=== PATIENT | female | born 1975 | race Two or more races ===

== ENCOUNTER 2018-10-27 22:39 | Emergency (ER) | payer OTHER ==
[2018-10-27 22:49] VITALS: BP 119/87; PULSE 116; TEMP 98.6; BMI 21.7
--- NOTE | 2018-10-27 22:55 | PDOC ---
History of Present Illness - General Chief Complaint: Pain Stated Complaint: RECTAL PAIN, CONSTIPATION Time Seen by Provider: 10/27/18 22:42 History Source: Patient Exam Limitations: No Limitations - History of Present Illness Initial Comments: 10/27/18 22:47 This is a 43-year-old female who comes in complaining of rectal pain. Patient said she is constipated and has had a difficult time having a bowel movement 3 days now. Patient was at urgent care center and was given Anusol and Colace rectal suppositories. Patient said she didn't take one Colace rectal suppository and had a small amount of soft stool but it was uncomfortable and so she came in for evaluation. Patient denies any nausea, vomiting, diarrhea. Patient denies any fevers or chills. Patient has history of irritable bowel syndrome and has history of chronic intermittent constipation. Allergies: as per nursing notes Past Medical History: none Social history: Lives with family. No smoking. No alcohol. No illicit drugs. Surgical history: None General: No fevers or chills, no weakness, no weight loss HEENT: No change in vision. No sore throat,. No ear pain CardioVascular: no chest discomfort. No shortness of breath Respiratory:No cough, or wheezing. Gastrointestinal: no nausea, vomiting, diarrhea or constipation, No rectal bleeding Genitourinary: No dysuria, hematuria, or frequency Musculoskeletal: No joint or muscle pain or swelling Neurologic: No headache, vertigo, dizziness or loss of consciousness Psychiatric: nor depression Skin: No rashes or easy bruising Endocrine: no increased thirst or abnormal weight change Allergic: no skin or latex allergy All other systems reviewed and normal Exam: General: Well-nourished well-developed individual, no acute distress HEENT: Throat: Normal, tonsils normal, no erythema or exudate Neck: Supple, no meningeal signs, no lymphadenopathy Eyes::Pupils equal reactive and round, extraocular motion intact Chest: Nontender to palpation Cardiac: S1-S2 normal, regular rate and rhythm, no murmurs rubs or gallops Respiratory: Lungs clear to auscultation bilateral Abdomen: Soft, nondistended, normal bowel sounds, there is no tenderness on palpation diffusely Rectal: There is a moderate amount of soft stool in the rectal vault stool is brown. There is no visible external hemorrhoids or palpable internal hemorrhoids. Extremities: Warm, dry, no cyanosis, clubbing, or edema Skin: No rashes Neuro: Alert and oriented x3, CN II - XII intact, nonfocal exam with normal strength, normal sensation, normal reflexes, normal gait, Psych: Normal mood and affect Assessment and plan: This is a 43-year-old female who comes in complaining of rectal pain. Patient is somewhat constipated but does have soft stool which she should be able to push out. Told patient to go to the pharmacy and get a mineral oil enema as well as a regular fleets enema and administer to herself as directed by the box Past History - Past Medical History Allergies/Adverse Reactions: Allergies Allergy/AdvReac Type Severity Reaction Status Date / Time Penicillins Allergy Verified 10/27/18 22:41 Home Medications: Ambulatory Orders NK [No Known Home Medication] 10/27/18 COPD: No GI Disorders: Yes (IBS) - Suicide/Smoking/Psychosocial Hx Smoking History: Never smoked Have you smoked in the past 12 months: No Information on smoking cessation initiated: No Hx Alcohol Use: No Drug/Substance Use Hx: No *Physical Exam - Vital Signs Last Vital Signs Temp Pulse Resp BP Pulse Ox 98.6 F 116 H 18 119/87 99 10/27/18 22:42 10/27/18 22:42 10/27/18 22:42 10/27/18 22:42 10/27/18 22:42 *DC/Admit/Observation/Transfer Diagnosis at time of Disposition: Constipation Qualifiers: Constipation type: unspecified constipation type Qualified Code(s): K59.00 - Constipation, unspecified - Discharge Dispostion Disposition: HOME Condition at time of disposition: Stable Decision to Admit order: No - Referrals - Patient Instructions Additional Instructions: Go to your local pharmacy and pear picker 2 fleets enemas. The first one should be a Fleet mineral oil enema. Follow the directions on the box and self administer this enema The other enema is a Fleet saline enema. If you do not have a bowel movement after the mineral oil enema then used a saline enema. It is important that you increase the fiber in your diet and stay well- hydrated.. Return to the emergency department immediately with ANY new, persistent or worsening symptoms. Continue any medications as previously prescribed by your physician. You should follow up with your primary doctor as soon as possible regarding today's emergency department visit. . Please make sure your doctor reviews the results of your emergency evaluation. Thank you for coming to the Emergency Department today for your care. It was a pleasure to see you today. Please note that your evaluation is INCOMPLETE until you follow-up with your doctor. - Post Discharge Activity
== END 2018-10-27 23:02 | disposition home or self-care (01) ==
LOC: FER 22:39
DX: K59.00 Constipation, unspecified (principal); K58.1 Irritable bowel syndrome with constipation
CPT/HCPCS: 99281-25